=== PATIENT | female | born 1990 | race Caucasian/White ===

== ENCOUNTER 2017-06-04 14:18 | Emergency (ER) | payer OTHER ==
[~2017-06-04] VITALS: Ht 160 cm; Wt 66.2 kg
[2017-06-04 14:27] VITALS: TEMP 37.7; Ht 160 cm; Wt 66.2 kg
[2017-06-04 16:32] LABS: BASO % 0.2 %; BASO ABS # 0.02 K/uL (0-0.2); EOS % 0.1 %; EOS ABS # 0.01 K/uL (0-0.5); HEMATOCRIT 42.2 % (37-47); HEMOGLOBIN 14.4 g/dL (12.0-16.0); IG# 0.03 K/uL (0.00-0.02); LYMPH % 11.9 %; LYMPH ABS # 1.37 K/uL (1.2-3.4); MEAN CELL VOLUME 90.9 fL (80-100); MEAN CORPUSCULAR HGB CONC 34.1 g/dl (32-36); NEUT % 80.5 %; NEUT ABS # 9.26 K/uL (1.4-6.5); PLATELET COUNT 188 K/uL (130-400); RED CELL DISTRIBUTION WIDTH CV 12.6 % (11.5-14.5); RED CELL DISTRIBUTION WIDTH SD 41.7 fL (36.4-46.3); WHITE BLOOD COUNT 11.49 K/uL (4.8-10.8)
[2017-06-04] MEDS ORDERED: VNTHFA/IN INH (16:35)
[2017-06-04] MEDS ORDERED: ALPR-411 PO (16:35)
[2017-06-04] MEDS ORDERED: MoRPHine SULFATE 4 MG/ML 1 ML CARP\\VIAL IV STA (16:53)
[2017-06-04] MEDS ORDERED: ONDANSETRON INJ 2 MG/ML 2 ML VIAL IV STA (16:53)
[2017-06-04 16:54] LABS: ALBUMIN 4.5 gm/dl (3.4-5.0); CALCIUM 9.8 mg/dl (8.5-10.1); CREATININE 0.91 mg/dl (0.60-1.20); POTASSIUM 3.7 mmol/L (3.5-5.1)
[2017-06-04 16:57] LABS: TOTAL PROTEIN 8.7 gm/dl (6.4-8.2)
[2017-06-04] MEDS ORDERED: OPTIRAY 320 IV PRN (17:00)
--- NOTE | 2017-06-04 20:03 | DIAGNOSTIC IMAGING REPORT ---
ABD/PELVIS IV AND ORAL CONT CT DOSE: 402.53 mGycm HISTORY: Pain diffuse abd pain TECHNIQUE: Multiaxial CT images of the abdomen and pelvis were performed following the use of intravenous and oral contrast. A dose lowering technique was utilized adhering to the principles of ALARA. COMPARISON STUDY: None. FINDINGS: The lung bases are clear. The liver, spleen, gallbladder, pancreas, kidneys, and adrenal glands are within normal limits. No bowel wall thickening or obstruction. The pelvic organs are unremarkable. No suspicious lytic or blastic osseous lesions. The appendix is normal. Small right and left ovarian cyst measuring 1.5 and 1.0 cm is effectively. IMPRESSION: 1. Small bilateral ovarian cysts. 2. Examination is otherwise negative. 3. Normal appendix. The above report was generated using voice recognition software. It may contain grammatical, syntax or spelling errors. Electronically signed by: Stvien Garcia M.D. 06/04/2017 8:02 PM Dictated Date/Time: 06/04/2017 7:59 PM
[2017-06-04 20:28] VITALS: BP 105/65; PULSE 68; O2SAT 99
--- NOTE | 2017-06-04 20:40 | EMERGENCY ROOM VISIT NOTE ---
History Report prepared by Sherry: John Ramsay Under the Supervision of: Dr. Tacos Gordon M.D. First contact with patient: 15:39 Chief Complaint: ABDOMINAL PAIN Stated Complaint: AB PAIN, CHILLS, SWEATS, EVEVATED WBC Nursing Triage Summary: Patient presents ambulatory to triage with c/o abdominal pain, nausea and tea colored urine WBC [id number] Velasco referred to ED, was evaluated in office yesterday History of Present Illness The patient is a 27 year old female who presents to the Emergency Room with complaints of intermittent diffuse abdominal pain beginning three days ago. She describes her pain as "cramping". She states that she has been experiencing occasional "sharp" pains in her right abdomen. The patient began a low carbohydrate, high fat diet after her pain began. She states that eating has worsened her pain. She also complains of chills, dark colored urine, and sweating. She does state that her urine is clear today. The patient denies burning with urination, black or bloody stool, vaginal discharge, vomiting, or recorded fevers. She has not had much to eat recently. Her most recent bowel movement was over 24 hours ago. The patient has not been sexually active for about two years. The patient has never been before. She has a family history of gallbladder problems. She had blood work drawn as well as an abdominal ultrasound yesterday for her symptoms. Source of History: patient Onset: Three days ago Position: abdomen (diffuse, right side) Quality: sharp, cramping Timing: intermittent Modifying Factors (Worsening): eating Associated Symptoms: + chills, + diaphoresis, + urinary symptoms (dark colored urine.), No fevers, No vomiting, No melena, No hematochezia Note: Negative: pain with urination or vaginal discharge. Review of Systems See HPI for pertinent positives & negatives. A total of 10 systems reviewed and were otherwise negative. Past Medical & Surgical Medical Problems: (1) No Known Active Medical Problems Family History No pertinent family history stated. Social History Smoking Status: Never Smoker Occupation Status: employed Current/Historical Medications Scheduled PRN Albuterol Hfa (Ventolin Hfa), 2 PUFFS INH DIRECTED PRN for Shortness of Breath Alprazolam (Xanax), 0.5-1 MG PO TID PRN for Anxiety/Agitation Allergies Coded Allergies: [place] Butter (Verified Allergy, Severe, "SWELLING WHERE EVER APPLIED", ) Amoxicillin (Verified Allergy, Intermediate, RASH, 06/04/17) Physical Exam Vital Signs Date Time Temp Pulse Resp B/P (MAP) Pulse Ox O2 Delivery O2 Flow Rate FiO2 06/04/17 20:28 68 18 105/65 99 06/04/17 18:06 92 104/61 99 Room Air 06/04/17 16:36 97 06/04/17 16:17 86 134/75 100 Room Air 06/04/17 14:27 37.7 108 20 132/70 100 Room Air Physical Exam Constitutional: Vital signs reviewed. Eyes: Pupils are equal round reactive to light. Conjunctiva are noninjected. ENT: Pharynx is clear without erythema or exudate. Mucous membranes are moist. Neck supple without meningeal signs. Respiratory: Clear to auscultation bilaterally. Breath sounds are equal bilaterally. Cardiovascular: Regular rate and rhythm. No rubs or gallops. GI: Soft, and nondistended. Bowel sounds are present. Positive Mack's sign. Diffuse upper abdominal and suprapubic tenderness. Musculoskeletal: No peripheral edema. No lower extremity tenderness. Integumentary: No cyanosis. Neurological: The patient is awake and alert. No focal deficits. Psychiatric: Normal affect. Medical Decision & Procedures ER Provider Diagnostic Interpretation: Radiology results as stated below per my review and the radiologist's interpretation: ABD/PELVIS IV AND ORAL CONT CT DOSE: 402.53 mGycm HISTORY: Pain diffuse abd pain TECHNIQUE: Multiaxial CT images of the abdomen and pelvis were performed following the use of intravenous and oral contrast. A dose lowering technique was utilized adhering to the principles of ALARA. COMPARISON STUDY: None. FINDINGS: The lung bases are clear. The liver, spleen, gallbladder, pancreas, kidneys, and adrenal glands are within normal limits. No bowel wall thickening or obstruction. The pelvic organs are unremarkable. No suspicious lytic or blastic osseous lesions. The appendix is normal. Small right and left ovarian cyst measuring 1.5 and 1.0 cm is effectively. IMPRESSION: 1. Small bilateral ovarian cysts. 2. Examination is otherwise negative. 3. Normal appendix. The above report was generated using voice recognition software. It may contain grammatical, syntax or spelling errors. Electronically signed by: Stiven Garcia M.D. 06/04/2017 8:02 PM Laboratory Results 06/04/17 16:05 Red Blood Count 4.64, Mean Corpuscular Volume 90.9, Mean Corpuscular Hemoglobin 31.0, Mean Corpuscular Hemoglobin Concent 34.1, Mean Platelet Volume 11.0, Neutrophils (%) (Auto) 80.5, Lymphocytes (%) (Auto) 11.9, Monocytes (%) (Auto) 7.0, Eosinophils (%) (Auto) 0.1, Basophils (%) (Auto) 0.2, Neutrophils # (Auto) 9.26, Lymphocytes # (Auto) 1.37, Monocytes # (Auto) 0.80, Eosinophils # (Auto) 0.01, Basophils # (Auto) 0.02 06/04/17 16:05 Test 06/04/17 15:57 06/04/17 16:05 Urine Color YELLOW Urine Appearance CLEAR (CLEAR) Urine pH 6.5 (4.5-7.5) Urine Specific [place] 1.012 (1.000-1.030) Urine Protein NEG (NEG) Urine Glucose (UA) NEG (NEG) Urine Ketones 2+ (NEG) Urine Occult Blood 1+ (NEG) Urine Nitrite NEG (NEG) Urine Bilirubin NEG (NEG) Urine Urobilinogen NEG (NEG) Urine Leukocyte Esterase NEG (NEG) Urine WBC (Auto) 1-5 /hpf (0-5) Urine RBC (Auto) 5-10 /hpf (0-4) Urine Hyaline Casts (Auto) 0 /lpf (0-5) Urine Epithelial Cells (Auto) >30 /lpf (0-5) Urine Bacteria (Auto) 1+ (NEG) Urine Test NEG (NEG) White Blood Count 11.49 K/uL (4.8-10.8) Red Blood Count 4.64 M/uL (4.2-5.4) Hemoglobin 14.4 g/dL (12.0-16.0) Hematocrit 42.2 % (37-47) Mean Corpuscular Volume 90.9 fL (80-100) Mean Corpuscular Hemoglobin 31.0 pg (25-34) Mean Corpuscular Hemoglobin Concent 34.1 g/dl (32-36) Platelet Count 188 K/uL (130-400) Mean Platelet Volume 11.0 fL (7.4-10.4) Neutrophils (%) (Auto) 80.5 % Lymphocytes (%) (Auto) 11.9 % Monocytes (%) (Auto) 7.0 % Eosinophils (%) (Auto) 0.1 % Basophils (%) (Auto) 0.2 % Neutrophils # (Auto) 9.26 K/uL (1.4-6.5) Lymphocytes # (Auto) 1.37 K/uL (1.2-3.4) Monocytes # (Auto) 0.80 K/uL (0.11-0.59) Eosinophils # (Auto) 0.01 K/uL (0-0.5) Basophils # (Auto) 0.02 K/uL (0-0.2) RDW Standard Deviation 41.7 fL (36.4-46.3) RDW Coefficient of Variation 12.6 % (11.5-14.5) Immature Granulocyte % (Auto) 0.3 % Immature Granulocyte # (Auto) 0.03 K/uL (0.00-0.02) Anion Gap 7.0 mmol/L (3-11) Est Creatinine Clear Calc Drug Dose 85.6 ml/min Estimated GFR () 100.9 Estimated GFR (Non- 87.1 BUN/Creatinine Ratio 9.1 (10-20) Calcium Level 9.8 mg/dl (8.5-10.1) Total Bilirubin 1.1 mg/dl (0.2-1) Direct Bilirubin 0.2 mg/dl (0-0.2) Aspartate Amino Transf (AST/SGOT) 18 U/L (15-37) Alanine Aminotransferase (ALT/SGPT) 27 U/L (12-78) Alkaline Phosphatase 73 U/L (45-117) Total Protein 8.7 gm/dl (6.4-8.2) Albumin 4.5 gm/dl (3.4-5.0) Lipase 190 U/L (73-393) Laboratory results as reviewed by me. Medications Administered Medications (Trade) Dose Ordered Sig/Greta Route Start Time Stop Time Status Last Admin Dose Admin Morphine Sulfate (MoRPHine SULFATE INJ) 4 mg NOW STAT IV 06/04/17 16:53 06/04/17 16:55 DC 06/04/17 17:12 4 MG Ondansetron HCl (Zofran Inj) 4 mg NOW STAT IV 4/20/18 16:53 06/04/17 16:55 DC 06/04/17 17:11 4 MG ED Course 1541: The patient was evaluated in room A2. A complete history and physical exam was performed. 1649: I reevaluated the patient. She states her pain is now worse and she would like something more for pain and nausea. She is agreeable with CT scan. On reexamination, she doesn't have any point tenderness anywhere and no Mack's sign. I obtained an US report from earlier today at [facility]. It shows a distended gallbladder, and otherwise normal study 1653: Zofran 4 mg IV, Morphine Sulfate 4 mg IV. 1734: I reevaluated the patient. She states her pain is now a 0/10 and she feels much better. She is drinking her contrast for CT scan. 2012: I reevaluated the patient. She is resting comfortably. She states she has a prior history of IBS. I recommended stopping her ketogenic diet and following up with her doctor. I also recommended trying Pepcid or Prilosec and she verbalized complete understanding and agreement. Medical Decision This is a 27-year-old female who presents with abdominal pain. Differential diagnosis includes cholelithiasis, cholecystitis, duodenitis, peptic ulcer disease, irritable bowel syndrome, inflammatory bowel disease, pancreatitis. I did perform a limited focused review of portions of the patient's old chart on the electronic medical record. The patient has had no prior visits to this hospital. I did obtain records from the [facility]. She did have an ultrasound earlier today which showed a distended gallbladder without signs of cholecystitis or gallstones. I did evaluate the patient as noted above. The patient is presenting with generalized abdominal pain. It seems to be a migrating pain. On initial examination she was tender in the right upper quadrant but when I reassessed her later and she had increased pain she was not tender in that area. She does state that it seems to be more consistent in the upper abdomen. I did treat her with IV morphine and Zofran. IV access was established. I did order and personally review the patient's urinalysis as described above. Findings are equivocal and did not appear to show any signs of kidney infection. I did order and review the patient's blood work as noted in the electronic medical record. Her white blood cell count is mildly elevated. I did order a CT of the abdomen and pelvis. I did review the images myself as well as the radiology report as described above. There is no evidence of acute process. I did reevaluate the patient. She states her pain is completely resolved. She does state that she has a history of irritable bowel syndrome. I told her this is more a diagnosis of exclusion but certainly could be the cause of her symptoms. I also explained that peptic ulcer disease might be a possibility. I did recommend close follow-up with her doctor and to stop the keto diet that she was on. She was also told to avoid alcohol and any acidic foods and use Prilosec or Pepcid [id number] as needed. She was told to return should she have worsening symptoms or any other concerning symptoms. She was discharged in good condition. Medication Reconcilliation Current Medication List: was personally reviewed by me Blood Pressure Screening Patient's blood pressure: Elevated blood pressure Blood pressure disposition: Referred to PCP Impression Primary Impression: Diffuse abdominal pain Scribe Attestation The scribe's documentation has been prepared under my direct and personally reviewed by me in its entirety. I confirm that the note above accurately reflects all work, treatment, procedures, and medical decision making performed by me. Departure Information Dispostion Home / Self-Care Referrals Aurelia Velasco DO (PCP) Patient Instructions ED Abdominal Pain Unkn Cause, My [facility] Additional Instructions You have been examined and treated today on an emergency basis only. This is not a substitute for, or an effort to provide, complete comprehensive medical care. It is impossible to recognize and treat all injuries or illnesses in a single emergency department visit. It is therefore important that you follow up closely with your physician. Call as soon as possible for an appointment. Return for worsening symptoms or if you develop fever, black or tarry stools, rectal bleeding or any other concerning symptoms.
== END 2017-06-04 20:25 | disposition home or self-care (01) ==
LOC: C.EDB 14:20 → C.EDA 20:25
DX: R10.84 Generalized abdominal pain (principal); R03.0 Elevated blood-pressure reading, without diagnosis of hypertension; R68.83 Chills (without fever); R61 Generalized hyperhidrosis; Z91.048 Other nonmedicinal substance allergy status; Z88.0 Allergy status to penicillin; Z83.79 Family history of other diseases of the digestive system